=== PATIENT | male | born 1980 | race Caucasian/White ===

== ENCOUNTER 2017-09-05 07:52 | Day surgery (SDC) | payer BC ==
[2017-08-30 12:11] VITALS: BMI 27.2
--- NOTE | 2017-09-04 16:27 | HP ---
HISTORY OF PRESENT ILLNESS: Mr. Witt presents for evaluation of longstanding back problems, but ac utely worse in November of this year after trying to tie his shoes. He had sudden increase in back pain as well as shooting pains in the bilateral buttocks and lateral hips, pain stops there. He denies t ingling or numbness. Walking is mostly unaffected. The worst position is from sitting to standing. Lying down is best. MRI from [facility] reveals disk herniation centrally at L4-L5 causing mod erate central canal stenosis and intact bilateral and descending L5 nerve roots, left greater than ri ght. It was likely the culprit of his problems. He has had physical therapy, medications, and injec tions with minimal success and then at this point would like to move forward with surgery. PAST MEDICAL HISTORY: Significant for just back pain. CURRENT MEDICATIONS: Lortab, Aleve and Motrin. ALLERGIES: No known drug allergies. PAST SURGICAL HISTORY: None. PHYSICAL EXAMINATION: GENERAL: Patient is alert and oriented x3. Gait is normal. EXTREMITIES: No ataxia. Lower extremity motor exam is normal and negative straight leg raise, negat sage Vishal's, reflexes are equal and present bilaterally at the patella. ASSESSMENT: Herniated disk with lumbar radiculopathy. PLAN: Dr. Guillen met with the patient, reviewed imaging and ultimately advocated for an L4 diskectomy . He explained to the patient the risks, benefits, and alternatives to the procedure. The patient e xpressed understanding and would like to move forward with surgery as discussed. The patient is ment ally competent and capable of making medical decisions for himself and we will move forward with surg sal as planned. Balwinder Adames PA-C, dictating for Dr. Kevin Guillen M.D.
[2017-09-05] MEDS ORDERED: Midazolam HCl 2 mg/2 ml Vial ONE ×2 (08:45→09:10)
[2017-09-05] MEDS ORDERED: Fentanyl 100 MCG/2 ML VIAL ONE (08:45)
[2017-09-05] MEDS ORDERED: CEFAZOLIN/Water 2 GM/20 ML SYRINGE ONE ×2 (09:10→13:22)
[2017-09-05] MEDS ORDERED: Bupivacaine/Epinephrine 0.25% 30 ML VIAL ONE ×2 (09:12→09:47)
[2017-09-05] MEDS ORDERED: Thrombin 5000 UNITS/5 ML VIAL ONE (09:12)
--- NOTE | 2017-09-05 11:37 | OP ---
DATE OF PROCEDURE: 09/05/2017 SURGEON: Dr. Kevin Guillen TEMP RECRUITER: Fredrick Adames PA-C. INDICATION: Pain. DIAGNOSIS: Lumbar radiculopathy secondary to lateral recess stenosis. ANESTHESIA: General. PROCEDURE: L4-5 lumbar decompression. TECHNIQUE: The patient was brought into the operating room and placed under general anesthesia. He was flipped from a supine to a prone position on the operating room table. A linear incision was rosalba nned over the L4-L5 segment. After prepping and draping and after an appropriate operative pause, th e incision was created. Soft tissues were swept away from midline. Self-retaining retractors were p laced in the wound for optimal exposure. After confirming the appropriate level, a high-speed cuttin g drill bit as well as 2, 3 and 4 mm Kerrisons were used to remove the spinous process at the L4-5 se gment. A laminectomy was performed at that segment as well as medial facetectomies bilaterally. In the end, the lateral recesses were well decompressed without a need for diskectomy. The wound was th en irrigated. Hemostasis was maintained throughout. The wound was then closed in anatomic layers an d a pressure dressing was applied. There were no known procedure complications.
[2017-09-05] MEDS ORDERED: Tamsulosin HCl 0.4 MG CAP ONE (12:35)
[2017-09-05] MEDS ORDERED: Acetaminophen/Codeine 30-300mg Tablet ONE (13:35)
[2017-09-05] MEDS ORDERED: Propofol 200 MG/20 ML VIAL ONE (14:01)
[2017-09-05] MEDS ORDERED: Ondansetron HCl/PF 4 MG/2 ML Vial ONE (14:01)
[2017-09-05] MEDS ORDERED: Lidocaine 1% PF 5 ML VIAL ONE (14:01)
[2017-09-05] MEDS ORDERED: Glycopyrrolate 0.2 MG/ML 5 ML SYRINGE ONE (14:01)
[2017-09-05] MEDS ORDERED: Ketorolac Tromethamine 30 MG/ML VIAL ONE (14:01)
== END 2017-09-05 13:40 | disposition home or self-care (01) ==
LOC: SDC 07:52
PROVIDERS: ATTEND Neurological Surgery
PROC: 01N80ZZ Release Thoracic Nerve, Open Approach (ICD-10-PCS; principal; 2017-09-05)
DX: M51.16 Intervertebral disc disorders with radiculopathy, lumbar region (principal); M48.061 Spinal stenosis, lumbar region without neurogenic claudication; F41.9 Anxiety disorder, unspecified; Z79.51 Long term (current) use of inhaled steroids; Z98.818 Other dental procedure status
CPT/HCPCS: 76001; J1885; J2001; J2250; J2405; J2704; J3010

== ENCOUNTER 2017-12-26 09:28 | Day surgery (SDC) | payer BC ==
[2017-12-24 13:45] VITALS: BMI 27.2
--- NOTE | 2017-12-25 21:39 | HP ---
HISTORY OF PRESENT ILLNESS: Mr. Witt is known to us for distant lumbar [facility]ke[facility], from which he did very well and unfortunately over the last roughly a month or so, he started to have recurrent pains. Now, he feels worse than before, but most painful in his low ba ck as well as bilateral posterior thighs down into the feet and this prevents him from walking in any significantly normal way. He comes in with a new MRI from the [facility] that reveals recurr ent disk herniation, albeit somewhat smaller centrally at L4-L5 causing moderate central canal stenos is and lateral recess stenosis that likely is the culprit in his symptoms. He would like to bypass a ll conservative measures and move towards surgery. I had a lengthy discussion regarding which approa ch should be as did he with Dr. Guillen and like to move forward with a repeat diskectomy. PAST MEDICAL HISTORY: None. CURRENT MEDICATIONS: Lortab, Aleve, Motrin. ALLERGIES: No known drug allergies. PAST SURGICAL HISTORY: Lumbar diskectomy. PHYSICAL EXAMINATION: GENERAL: Patient is alert and orient x3. NEUROLOGIC: Gait is severely antalgic and altered. Using crutches to ambulate. EXTREMITIES: Lower extremity motor exam is normal. ASSESSMENT: Lumbar disk herniation with radiculopathy. PLAN: Dr. Guillen met with the patient, reviewed imaging and advocated for a repeat L4-L5 decompressio n. He explained to the patient the risks, benefits, and alternatives to the procedure. The patient expressed understanding and would like to move forward with surgery as discussed. I believe the shantal ent is mentally competent and capable of making medical decisions for himself. We will move forward with surgery as well. Balwinder Adames PA-C, dictating for Dr. Guillen.
[2017-12-26] MEDS ORDERED: Bupivacaine HCl 0.5%/Epinephrine 1:200,000/PF 30 ml Vial ONE (10:15)
[2017-12-26] MEDS ORDERED: Midazolam HCl 2 mg/2 ml Vial ONE (10:18)
[2017-12-26] MEDS ORDERED: CEFAZOLIN/Water 2 GM/20 ML SYRINGE ONE ×2 (10:18→14:04)
[2017-12-26] MEDS ORDERED: Fentanyl 100 MCG/2 ML VIAL ONE ×3 (10:27→12:22)
--- NOTE | 2017-12-26 12:40 | OP ---
DATE OF SURGERY: 12/26/2017 SURGEON: Kevin Guillen M.D. DESIGN ENGINEERING INTERN: Balwinder Adames PA-C INDICATION: Recurrent radiculopathy. PROCEDURE PERFORMED: Reoperation of L4-5 extension of laminectomy, medial facetectomy, and decompres sommer. ANESTHESIA: General. TECHNIQUE: The patient was brought into the operating room and placed under general anesthesia. He was flipped from a supine or prone position on the operating room table. His old linear incision was prepped and draped in the usual sterile fashion. Following an appropriate operative pause, the inci sommer was created. The soft tissues were swept away from midline. A self-retaining retractor was rosalba eleazar into the wound and a C-arm image was obtained to confirm the appropriate location. There was ext ensive degree of scar present throughout the lateral recesses and at the site of his prior laminectom y defect. I identified the bone edge of his prior defect and using high-speed cutting drill bit as w ell as 2, 3 and 4-mm Kerrison extended the laminectomy in a cephalad direction, but also laterally bi laterally to encompass the medial aspect of the facet joints. There was extensive scar within the la teral recesses. I did palpate the disk which was essentially mediated, found this not to be a substa ntial component to his lateral recess encroachment. I believe decompressing the bone and scar would be enough to decompress the descending L5 nerve roots bilaterally. The wound was then irrigated. He mostasis was maintained throughout. The wound was then closed in anatomic layers and a pressure dres sing was applied. There were no known procedural complications.
[2017-12-26] MEDS ORDERED: HYDROcodone/Acetaminophen 5/325 mg Tablet ONE (13:12)
[2017-12-26] MEDS ORDERED: Glycopyrrolate 0.2 MG/ML 5 ML SYRINGE ONE (15:16)
[2017-12-26] MEDS ORDERED: Esmolol 100 MG/10 ML VIAL ONE (15:16)
[2017-12-26] MEDS ORDERED: Dexamethasone 20 MG/5 ML VIAL ONE (15:16)
[2017-12-26] MEDS ORDERED: Lidocaine 1% PF 5 ML VIAL ONE (15:16)
[2017-12-26] MEDS ORDERED: PROPOFOL 200 MG/20 ML VIAL ONE (15:16)
== END 2017-12-26 14:37 | disposition home or self-care (01) ==
LOC: SDC 09:28
PROVIDERS: ATTEND Neurological Surgery
PROC: 01NB0ZZ Release Lumbar Nerve, Open Approach (ICD-10-PCS; principal; 2017-12-26)
DX: M51.16 Intervertebral disc disorders with radiculopathy, lumbar region (principal); M48.061 Spinal stenosis, lumbar region without neurogenic claudication; Z88.8 Allergy status to other drugs, medicaments and biological substances; Z79.51 Long term (current) use of inhaled steroids; Z98.890 Other specified postprocedural states
CPT/HCPCS: 76001; 96374; J0670; J1100; J2001; J2250; J2704; J3010

== ENCOUNTER 2018-09-01 21:12 | Emergency (ER) | payer BC ==
[2018-09-01] MEDS ORDERED: Ketorolac Tromethamine 60 MG/2 ML VIAL ONE (21:25)
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
== END 2018-09-01 22:42 | disposition home or self-care (01) ==
LOC: ERS 21:12
DX: M54.2 Cervicalgia (principal); V43.52XA Car driver injured in collision with other type car in traffic accident, initial encounter
CPT/HCPCS: 70450; 72125; 96372; J1885

== ENCOUNTER 2018-09-10 07:32 | Outpatient (CLI) | payer BC ==
--- NOTE | 2018-09-10 10:21 | MRI ---
MRI CERVICAL SPINE WITHOUT CONTRAST: INDICATIONS: History of cervical radiculopathy. COMPARISON: CT cervical spine, dated 09/01/2018. FINDINGS: No acute fracture is evident. Bone marrow signal intensity appears within normal limits. Paraspinal alignment appears within normal limits. The visualized paraspinal musculature appears within normal limits. The visualized posterior fossa is unremarkable appearing. The craniocervical junction appears within normal limits. There is a subchondral cyst-like abnormali ty involving the left C1 facet. At C2-C3, there is moderate left facet joint degenerative change and mild right facet joint degenerat sage change, but no appreciable central canal or neural foraminal narrowing. At C3-C4, there is a broad-based bulge with a superimposed central protrusion causing mild to moderat e central canal narrowing and mild ventral effacement of the spinal cord. No definite cord signal ab normality is evident. There is uncovertebral hypertrophy at this level, greater on the right, induci ng mild right neural foraminal narrowing. At C4-C5, there is a broad-based bulge with facet joint degenerative change and uncovertebral hypertr ophy, inducing mild bilateral neural foraminal narrowing. At C5-C6, there is uncovertebral hypertrophy and facet joint degenerative change, greater on the righ t, inducing mild right neural foraminal narrowing. At C6-C7, there is a broad-based bulge with uncovertebral hypertrophy and facet joint degenerative ch michael, inducing mild to moderate bilateral neural foraminal narrowing. At C7-T1, there is no appreciable central canal or neural foraminal narrowing. IMPRESSION: 1. Broad-based bulge with superimposed central protrusion at C3-C4, causing mild ventral effacement of the spinal cord, without definite cord signal abnormality. 2. Multilevel neural foraminal narrowing, as detailed above. POS: [facility]
== END 2018-09-10 07:33 | disposition home or self-care (01) ==
LOC: TBSIIMAG 07:32
PROVIDERS: ATTEND Family Medicine
DX: S19.9XXA Unspecified injury of neck, initial encounter (principal); M50.11 Cervical disc disorder with radiculopathy, high cervical region; M48.02 Spinal stenosis, cervical region
CPT/HCPCS: 72141

== ENCOUNTER 2019-05-19 15:02 | Outpatient (CLI) | payer BC ==
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
== END 2019-05-19 15:03 | disposition home or self-care (01) ==
LOC: BICCT 15:02
PROVIDERS: ATTEND Family Medicine
DX: M47.812 Spondylosis without myelopathy or radiculopathy, cervical region (principal)
CPT/HCPCS: 72125

== ENCOUNTER 2020-07-29 08:59 | Outpatient (CLI) | payer BC ==
--- NOTE | 2020-07-29 10:37 | MRI ---
MR the lumbar spine without contrast INDICATION: 40-year-old male with history of lumbar radiculopathy COMPARISON: MR the lumbar spine with and without contrast dated December 10, 2017 from the [facility] TECHNIQUE: Multiplanar multisequence MR images were obtained of lumbar spine without IV contrast. FINDINGS: Bone marrow: Bone marrow signal intensity appears within normal limits. Distal spinal cord and conus: Normal. The conus seen to terminate at L1. Visualized retroperitoneum and paraspinal soft tissues: Normal. There is postsurgical change consistent with laminotomies at L4-5. Vertebral levels: L5-S1: There is a broad-based disc bulge with facet hypertrophy and loss of disc space height at L5-S 1. There is no appreciable central canal or neural foraminal narrowing.. L4-5: There is loss of the normal disc space height that appears similar to the prior examination. Th ere is a worsening central disc protrusion superimposed on a broad-based disc bulge causing moderate narrowing of the central canal. There is a left paracentral inferior projecting disc extrusi on inducing moderate central canal narrowing measuring 1.8 x 0.9 cm. This is inducing severe narrowing of the subarticular left lateral recess with impingement of the traversing left L5 nerve ro ot. There is mild neural foraminal narrowing which is stable. L3-4: No appreciable central canal or neuroforaminal narrowing. L2-3: No appreciable central canal or neuroforaminal narrowing. L1-L2: No appreciable central canal or neuroforaminal narrowing. T12-L1: No appreciable central canal or neuroforaminal narrowing. IMPRESSION: 1. New left paracentral inferior projecting disc extrusion at L4-5 causing severe narrowing of the le ft subarticular lateral recess with impingement of the traversing left L5 nerve root. This is also inducing moderate central canal narrowing. There is slight worsening of the central disc protrusion a t L4-5 inducing moderate central canal narrowing at L4-5. There is stable mild bilateral neural foraminal narrowing L4-5 due to the broad-based disc bulge.
== END 2020-07-29 09:00 | disposition home or self-care (01) ==
LOC: BICMRI 08:59
PROVIDERS: ATTEND Family Medicine
DX: M51.16 Intervertebral disc disorders with radiculopathy, lumbar region (principal); M48.061 Spinal stenosis, lumbar region without neurogenic claudication
CPT/HCPCS: 72148

== ENCOUNTER 2020-08-03 12:23 | Outpatient (CLI) | payer BC ==
--- NOTE | 2020-08-03 13:12 | RAD ---
4 views lumbar spine: 08/03/2020 COMPARISON: None HISTORY: Lumbar radiculopathy, left leg numbness FINDINGS: Lumbar pedicles appear intact on frontal imaging. There is disc space narrowing with degene rative endplate change and anterior osteophyte formation at the lumbosacral junction. There is no anterolisthesis or retrolisthesis noted on the lateral neutral, flexion, or extension views. There is disc space narrowing with anterior osteophyte formation at L4-5. There is multilevel lower lumbar spine facet hypertrophy, most prominent at the L4-5 and L5-S1 levels. IMPRESSION: Lower lumbar spine degenerative change with no acute osseous abnormality.
== END 2020-08-03 12:24 | disposition home or self-care (01) ==
LOC: BICRAD 12:23
PROVIDERS: ATTEND Neurological Surgery
DX: M47.26 Other spondylosis with radiculopathy, lumbar region (principal)
CPT/HCPCS: 72110

== ENCOUNTER 2020-09-13 06:19 | Day surgery (SDC) | payer BC ==
[2020-09-09 12:22] VITALS: BMI 27.2
--- NOTE | 2020-09-12 21:56 | HP ---
HISTORY OF PRESENT ILLNESS: Mr. Witt required lumbar and cervical spine surgery. He is referred urgently by Dr. Franklin for onset of left lower extremity pain, numbness, and foot drop. His new MRI scan that reveals inferiorly migrated L4 disk herniation. He hopes to expedite surgery in hopes to improve his motor function. PAST MEDICAL HISTORY: No major medical problems. PAST SURGICAL HISTORY: ACDF and lumbar decompression. CURRENT MEDICATIONS: Aleve and cyclobenzaprine. ALLERGIES: NO KNOWN DRUG ALLERGIES. PHYSICAL EXAMINATION: Deferred for telehealth visit. ASSESSMENT: Lumbar disk herniation. PLAN: Dr. Guillen met with the patient, reviewed imaging, advocated for an L4-5 diskectomy. He explained to the patient risks, benefits, and alternatives to the procedure. Patient expressed understanding and elected to move forward with surgery as discussed. I do believe the patient is mentally competent and capable of making medical decisions for himself. We will move forward with surgery as planned. Job ID: [id number]
[2020-09-13] MEDS ORDERED: Bupivacaine PF 0.5% 30 ML VIAL ONE (07:01)
[2020-09-13] MEDS ORDERED: Thrombin 5000 UNITS/5 ML VIAL ONE (07:01)
[2020-09-13] MEDS ORDERED: EPINEPHrine 1 MG/10 ML Abboject SYRINGE ONE (07:01)
[2020-09-13] MEDS ORDERED: EPINEPHrine 1 MG/ML AMP ONE (07:02)
[2020-09-13] MEDS ORDERED: Fentanyl 100 MCG/2 ML VIAL ONE (07:38)
[2020-09-13] MEDS ORDERED: HYDROmorphone 0.5 MG/0.5 ML SYRINGE ONE (07:38)
[2020-09-13] MEDS ORDERED: Dexmedetomidine 200 MCG/2 ML VIAL ONE (07:38)
[2020-09-13] MEDS ORDERED: Midazolam HCl 2 mg/2 ml Vial ONE (07:42)
[2020-09-13] MEDS ORDERED: PROPOFOL 200 MG/20 ML VIAL ONE (08:57)
[2020-09-13] MEDS ORDERED: ePHEDrine 50 MG/ML VIAL ONE (08:57)
[2020-09-13] MEDS ORDERED: Ondansetron PF 4 MG/2 ML Vial ONE (08:57)
[2020-09-13] MEDS ORDERED: Lidocaine 1% PF 5 ML VIAL ONE (08:57)
[2020-09-13] MEDS ORDERED: Dexamethasone 20 MG/5 ML VIAL ONE (08:57)
[2020-09-13] MEDS ORDERED: Rocuronium Bromide 10 MG/ML (10ML VIAL) ONE (08:57)
[2020-09-13] MEDS ORDERED: Ketorolac Tromethamine 30 MG/ML VIAL ONE (08:57)
[2020-09-13] MEDS ORDERED: Glycopyrrolate 0.2 MG/ML 5 ML SYRINGE ONE (08:57)
--- NOTE | 2020-09-13 09:15 | OP ---
DATE OF PROCEDURE: 09/13/2020 REHABILITATION SERVICES DIRECTOR: Balwinder Adames PA-C INDICATION: Pain. DIAGNOSIS: Lumbar radiculopathy. PROCEDURE PERFORMED: Reoperation, L4-5 diskectomy, left. ANESTHESIA: General. DESCRIPTION OF PROCEDURE: The patient was brought into the operating room and placed under general anesthesia. He was flipped from the supine to prone position on the operating room table. A linear incision was planned over the L4-L5 segment. After prepping and draping and after an appropriate preoperative pause, the incision was created. The soft tissues were swept away from midline. Self-retaining retractors were placed in the wound for optimal exposure and the C-arm images obtained. High-speed cutting drill bit as well as 2, 3 and 4 mm Kerrisons were used to perform a complete laminectomy at L5 on the left. The thecal sac was mobilized medially where there was a large inferiorly migrated disk herniation present consistent with what was on the patient's MRI scan. This was removed and there was complete decompression of the lateral recess. The wound was then irrigated. Hemostasis was maintained throughout. The wound was then closed in anatomic layers and a pressure dressing was applied. There were no known procedural complications. Job ID: [id number]
[2020-09-13] MEDS ORDERED: Tamsulosin HCl 0.4 MG CAP ONE (11:08)
[2020-09-13] MEDS ORDERED: HYDROcodone/Acetaminophen 5/325 mg Tablet ONE (12:22)
== END 2020-09-13 13:35 | disposition home or self-care (01) ==
LOC: SDC 06:19
PROVIDERS: ATTEND Neurological Surgery
PROC: 0ST20ZZ Resection of Lumbar Vertebral Disc, Open Approach (ICD-10-PCS; principal; 2020-09-13)
DX: M51.16 Intervertebral disc disorders with radiculopathy, lumbar region (principal); Z88.8 Allergy status to other drugs, medicaments and biological substances
CPT/HCPCS: 76000; J0171; J0690; J1100; J1170; J1885; J2250; J2405; J2704; J3010; J3490; S0020

== ENCOUNTER 2023-06-07 08:55 | Day surgery (SDC) | payer BC ==
[2023-06-05 08:27] VITALS: BMI 27.2
[2023-06-07] MEDS ORDERED: Thrombin 5000 UNITS/5 ML VIAL ONE (09:27)
[2023-06-07] MEDS ORDERED: Sodium Chloride 0.9% 100 ML ONE ×2 (10:15→15:37)
[2023-06-07] MEDS ORDERED: CEFAZOLIN 2 GM VIAL ONE ×2 (10:15→15:36)
[2023-06-07] MEDS ORDERED: fentaNYL PF 100 MCG/2 ML SYRINGE ONE (11:02)
[2023-06-07] MEDS ORDERED: Lidocaine 1% PF 5 ML VIAL ONE (11:47)
[2023-06-07] MEDS ORDERED: Dexamethasone 20 MG/5 ML VIAL ONE (11:47)
[2023-06-07] MEDS ORDERED: PROPOFOL 200 MG/20 ML VIAL ONE (11:47)
[2023-06-07] MEDS ORDERED: Rocuronium Bromide 10 MG/ML (10ML VIAL) ONE (11:47)
[2023-06-07] MEDS ORDERED: diphenhydrAMINE 50 MG/ML VIAL ONE (11:47)
[2023-06-07] MEDS ORDERED: SUGAMMADEX SODIUM 200 MG/2 ML VIAL ONE (13:11)
[2023-06-07] MEDS ORDERED: fentaNYL 50 mcg/mL 1 mL Vial ONE ×2 (13:44→14:29)
[2023-06-07] MEDS ORDERED: Tamsulosin HCl 0.4 MG CAP ONE (15:00)
[2023-06-07] MEDS ORDERED: HYDROcodone/Acetaminophen 5/325 mg Tablet ONE (15:36)
== END 2023-06-07 16:21 | disposition home or self-care (01) ==
LOC: SDC 08:55
PROVIDERS: ATTEND Neurological Surgery
PROC: 0RG2070 Fusion of 2 or more Cervical Vertebral Joints with Autologous Tissue Substitute, Anterior Approach, Anterior Column, Open Approach (ICD-10-PCS; principal; 2023-06-07)
PROC: 0RG20A0 Fusion of 2 or more Cervical Vertebral Joints with Interbody Fusion Device, Anterior Approach, Anterior Column, Open Approach (ICD-10-PCS; principal; 2023-06-07)
DX: M48.02 Spinal stenosis, cervical region (principal); M54.12 Radiculopathy, cervical region; Z79.899 Other long term (current) drug therapy
CPT/HCPCS: C1713; C1889; J1100; J1200; J2704; J3010; J3490